=== PATIENT | male | born 1980 | race Caucasian/White ===

== ENCOUNTER 2017-03-28 02:01 | Emergency (ER) | payer SELFPAY | END 2017-03-28 02:25 | disposition home or self-care (01) | LOC: ER 02:01 | DX: M54.5 Low back pain (principal); G89.29 Other chronic pain; F41.9 Anxiety disorder, unspecified; F17.200 Nicotine dependence, unspecified, uncomplicated; Z87.442 Personal history of urinary calculi | CPT/HCPCS: 99283; A9270-GY; J1040 ==